=== PATIENT | female | born 1995 | race Caucasian/White ===

== ENCOUNTER → 2017-11-07 | Outpatient (CLI) | payer OTHER, BC | END | disposition home or self-care (01) | LOC: SPEC 09:01 | PROVIDERS: ATTEND Nurse Practitioner | DX: J02.9 Acute pharyngitis, unspecified (principal) | CPT/HCPCS: 87070 ==

== ENCOUNTER → 2017-11-14 | Outpatient (CLI) | payer OTHER ==
[2017-11-14 16:12] LABS: BASO % 0 % (0-3); EOS # 0.1 x10^3/uL (0.0-0.7); EOS % 1 % (0-3); HEMATOCRIT 44.5 % (36.0-47.0); HEMOGLOBIN 15.4 g/dL (12.0-15.5); LYMPH # 2.5 x10^3/uL (1.0-4.8); LYMPH % 31 % (24-48); MEAN CORPUSCULAR HEMOGLOBIN 33 pg (25-35); MEAN CORPUSCULAR HGB CONC 35 g/dL (31-37); MEAN CORPUSCULAR VOLUME 95 fL (79-100); MONO # 0.4 x10^3/uL (0.0-1.1); MONO % 5 % (0-9); NEUT % 62 % (31-73); PLATELET COUNT 225 x10^3/uL (140-400); RED BLOOD COUNT 4.68 x10^6/uL (3.50-5.40); RED CELL DISTRIBUTION WIDTH 12.3 % (11.5-14.5)
[2017-11-14 16:23] LABS: ALBUMIN 4.3 g/dL (3.4-5.0); ALBUMIN/GLOBULIN RATIO 1.1 (1.0-1.7); CALCIUM 9.5 mg/dL (8.5-10.1); CREATININE 0.8 mg/dL (0.6-1.0); GFR 90.5; POTASSIUM 3.4 mmol/L (3.5-5.1); TOTAL BILIRUBIN 0.6 mg/dL (0.2-1.0); TOTAL PROTEIN 8.1 g/dL (6.4-8.2)
[2017-11-14 16:53] LABS: BILIRUBIN,URINE NEGATIVE (NEG); CLARITY,URINE CLOUDY; COLOR,URINE YELLOW; NITRITE,URINE NEGATIVE (NEG); PH,URINE 5.5; PROTEIN,URINE 30 mg/dL (NEG-TRACE); UROBILINOGEN,URINE 0.2 mg/dL (0.2 mg/dL)
[2017-11-14 17:12] LABS: WBC,URINE TNTC /HPF (0-4)
[2017-11-14 17:13] LABS: BACTERIA,URINE MOD /HPF (0-FEW); SQUAMOUS EPITHELIAL CELL,UR MANY /LPF; TRICHOMONAS,URINE PRESENT
== END | disposition home or self-care (01) ==
LOC: LAB 15:47
PROVIDERS: ATTEND Nurse Practitioner
DX: R10.84 Generalized abdominal pain (principal)
CPT/HCPCS: 36415; 80053; 81001; 83690; 85025; 87086

== ENCOUNTER 2018-02-25 18:17 | Emergency (ER) | payer OTHER ==
[~2018-02-25] VITALS: Ht 165.1 cm; Wt 72.6 kg
[2018-02-25 18:55] VITALS: BP 139/88
[2018-02-25] MEDS ORDERED: SULF1TAB24 PO (19:27)
[2018-02-25] MEDS ORDERED: SMZ/TMP 800/160MG TABLET. PO ONE ×2 (19:30→19:35)
--- NOTE | 2018-02-25 19:50 | PHYS DOC ---
Past Medical History Past Medical History: Anxiety, Depression Past Surgical History: No Surgical History Alcohol Use: Occasionally Drug Use: None Adult General Chief Complaint Chief Complaint: SKIN PROBLEM HPI HPI Patient is a 22 year old female who presents with breast problem. Patient reports she had some swelling and a pustule formation at the Devon of the right breast. Symptoms started about 5 days earlier. She does have pictures on her phone that reveal what appears to be a large pustule at that area. She states yesterday, she was able to pop the pustule and there was a large amount of fluid that came out. She has not had a fever or chills. Her symptoms have improved since yesterday. No nipple discharge. Denies prior history of abscesses. Review of Systems Review of Systems Constitutional: Denies fever or chills Respiratory: Denies cough or shortness of breath Cardiovascular: No additional information not addressed in HPI GI: Denies abdominal pain, nausea Musculoskeletal: Denies back pain Integument: Denies rash or skin lesions Neurologic: Denies headache Endocrine: Denies polyuria All other systems were reviewed and found to be within normal limits, except as documented in this note. Current Medications Current Medications Current Medications Medications (Trade) Dose Ordered Sig/Obdulia Start Time Stop Time Status Last Admin Dose Admin Trimethoprim/ Sulfamethoxazole (Bactrim Ds) 1 tab STK-MED ONCE 02/25/18 19:35 02/25/18 19:37 DC Allergies Allergies Allergies Coded Allergies Type Severity Reaction Last Updated Verified No Known Drug Allergies 02/25/18 No Physical Exam Physical Exam Constitutional: Well developed, well nourished, no acute distress, non-toxic appearance HENT: Normocephalic, atraumatic, bilateral external ears normal, oropharynx moist Eyes: PERRLA, EOMI, conjunctiva normal Neck: Normal range of motion, no tenderness Cardiovascular:Heart rate regular rhythm, no murmur Lungs & Thorax: Bilateral breath sounds clear to auscultation Abdomen: Bowel sounds normal, soft, no tenderness Skin: Warm, dry, no erythema, no rash Neurologic: Alert and oriented X 3 Psychologic: Affect normal, judgement normal Right breast: area of mild erythema and induration over the areola at the 10 o' clock, position in relation to the nipple. No palpable fluctuance. No local warmth to touch. Current Patient Data Vital Signs Vital Signs Date Time Temp Pulse Resp B/P (MAP) Pulse Ox O2 Delivery O2 Flow Rate FiO2 02/25/18 18:55 98.7 88 18 139/88 (105) 100 Room Air 98.7 EKG EKG [] Radiology/Procedures Radiology/Procedures [] Course & Med Decision Making Course & Med Decision Making Pertinent Labs and Imaging studies reviewed. (See chart for details) Patient was evaluated for a possible abscess near the right Devon. Bedside ultrasound was used and did not reveal any significant fluid collection to be present although there was some mild induration and erythema of the skin in that area. No indication for incision and drainage or needle drainage at this time. Will discharge patient home with a brief course of Bactrim. Patient is advised to come back to the ER in 24-48 hours if symptoms do not improve. Last tetanus was one year earlier. Dragon Disclaimer Dragon Disclaimer This electronic medical record was generated, in whole or in part, using a voice recognition dictation system. Departure Departure Impression: Primary Impression: Abscess of breast Disposition: 01 HOME, SELF-CARE Condition: GOOD Patient Instructions: Abscess, Care After Scripts Sulfamethoxazole/Trimethoprim (BACTRIM DS TABLET) 1 Each Tablet 1 EACH PO BID for 5 Days, #10 TAB Prov: DAHLIA BURTON DO 02/25/18 DAHLIA BURTON DO Feb 25, 2018 19:50
== END 2018-02-25 19:51 | disposition home or self-care (01) ==
LOC: ER 18:17
DX: N61.1 Abscess of the breast and nipple (principal)
CPT/HCPCS: 99284-25

== ENCOUNTER 2018-04-03 18:14 | Emergency (ER) | payer OTHER ==
[~2018-04-03] VITALS: Ht 165.1 cm; Wt 99.8 kg
[~2018-04-03 18:14] MED LIST: SULF1TAB24 PO
[2018-04-03 19:00] VITALS: BP 137/90
[2018-04-03] MEDS ORDERED: HYDROcodone/APAP 5/325MG 1 TAB TABLET PO ONE (19:15)
--- NOTE | 2018-04-03 19:44 | PHYS DOC ---
Past Medical History Past Medical History: Anxiety, Depression Past Surgical History: No Surgical History Alcohol Use: Occasionally Drug Use: None Adult General Chief Complaint Chief Complaint: BREAST PROBLEM HPI HPI Patient is a 22 year old female who presents with right breast cyst that she has been wanting since February. Patient states the cyst is under the right nipple. Patient states there is no drainage and she's not been running a fever. Patient states it is tender and painful. Patient rates her pain 8 out of 10. Review of Systems Review of Systems Constitutional: Denies fever or chills [] Eyes: Denies change in visual acuity, redness, or eye pain [] HENT: Denies nasal congestion or sore throat [] Respiratory: Denies cough or shortness of breath [] Cardiovascular: No additional information not addressed in HPI [] GI: Denies abdominal pain, nausea, vomiting, bloody stools or diarrhea [] : Denies dysuria or hematuria [] Musculoskeletal: Denies back pain or joint pain [] Integument: Abscess under right nipple. Denies rash or skin lesions [] Neurologic: Denies headache, focal weakness or sensory changes [] All other systems were reviewed and found to be within normal limits, except as documented in this note. Current Medications Current Medications Current Medications Medications (Trade) Dose Ordered Sig/Obdulia Start Time Stop Time Status Last Admin Dose Admin Acetaminophen/ Hydrocodone Bitart (Lortab 5/325) 1 tab 1X ONCE 04/03/18 19:15 04/03/18 19:16 DC 04/03/18 19:15 1 TAB Allergies Allergies Allergies Coded Allergies Type Severity Reaction Last Updated Verified No Known Drug Allergies 02/25/18 No Physical Exam Physical Exam Constitutional: Well developed, well nourished, no acute distress, non-toxic appearance. [] HENT: Normocephalic, atraumatic, bilateral external ears normal, oropharynx moist, no oral exudates, nose normal. [] Eyes: PERRLA, EOMI, conjunctiva normal, no discharge. [] Neck: Normal range of motion, no tenderness, supple, no stridor. [] Cardiovascular:Heart rate regular rhythm, no murmur [] Lungs & Thorax: Bilateral breath sounds clear to auscultation [] Abdomen: Bowel sounds normal, soft, no tenderness, no masses, no pulsatile masses. [] Skin: Hard dollar coin size abscess under right breast. Warm, dry, outer edges on the skin around the areola erythema, no rash. [] Back: No tenderness, no CVA tenderness. [] Extremities: No tenderness, no cyanosis, no clubbing, ROM intact, no edema. [] Neurologic: Alert and oriented X 3, normal motor function, normal sensory function, no focal deficits noted. [] Psychologic: Affect normal, judgement normal, mood normal. [] Current Patient Data Vital Signs Vital Signs Date Time Temp Pulse Resp B/P (MAP) Pulse Ox O2 Delivery O2 Flow Rate FiO2 04/03/18 19:15 18 99 Room Air 04/03/18 19:00 98.6 104 137/90 (106) 98.6 EKG EKG [] Radiology/Procedures Radiology/Procedures [] Impressions: [facility] [address] [place] [address] IMAGING REPORT Signed PATIENT: ADONIS HOOD ACCOUNT: [id number] : 1995 LOCATION: ER AGE: 22 SEX: F EXAM STATUS: REG ER ORD. PHYSICIAN: JESUS COYLE APRN REASON: cyst at nipple PROCEDURE: BREAST RIGHT Limited right breast ultrasound the right 2018 INDICATION: Right breast area of redness and pain at the 10:00 position, 1 cm from the nipple. COMPARISON: None available TECHNIQUE: Sonographic evaluation of the right breast was performed at the 10:00 position, 1 cm from the nipple and 9:30 position, 1 cm from the nipple. FINDINGS: There is a 2.7 x 2.8 x 2.0 cm irregular mass with mixed internal echogenicity and suggestion of internal color Doppler. There is skin thickening measuring 2-3 mm. Right axillary lymph node measures 2.5 x 1.2 cm with normal fatty hilum and mild cortical thickness measuring up to 5 mm. Additional normal reniform lymph node measures 1.9 x 1.0 cm with normal cortical thickness. IMPRESSION: 2.7 x 2.8 x 2.0 cm irregular mass is identified in the 10:00 position, 1 cm from the nipple. Findings may reflect a hematoma or developing abscess. Solid parenchymal mass is a differential consideration and correlation with mammography may be of benefit. No drainable fluid collection is identified. BI-RADS Category 0. Incomplete. Recommendations: Recommend additional imaging with mammography. Electronically signed by: Mirza Loco MD (04/03/2018 8:26 PM) [facility] DICTATED and SIGNED BY: MIRZA LOCO MD DATE: 04/03/182021 Course & Med Decision Making Course & Med Decision Making Patient is a 22 year old female who presents with right breast cyst that she has been wanting since February. Patient states the cyst is under the right nipple. Patient states there is no drainage and she's not been running a fever. Patient states it is tender and painful. Patient rates her pain 8 out of 10. Alert and oriented. Skin pink warm and dry. Afebrile. Mucus membranes are moist. Patient has a hard collar coin-sized area that is under her right nipple. There is no drainage from the nipple. There is pinkness that expands slightly outside of the area left. Tender to palpation. It is hard. Patient is given Friedens in the ED. She states that she gets these often in the last one was about a month ago for which she received Bactrim for. Breast ultrasound shows: 2.7 x 2.8 x 2.0 cm irregular mass is identified in the 10:00 position, 1 cm from the nipple. Findings may reflect a hematoma or developing abscess.Solid parenchymal mass is a differential consideration and correlation with mammography may be of benefit. No drainable fluid collection is identified. BI-RADS Category 0. Incomplete. Recommendations: Recommend additional imaging with mammography. Patient will need to follow-up with her primary care or general surgeon for a mammogram for continuation of care. Dragon Disclaimer Dragon Disclaimer This electronic medical record was generated, in whole or in part, using a voice recognition dictation system. Departure Departure Impression: Primary Impression: Breast abscess Disposition: 01 HOME, SELF-CARE Condition: STABLE Referrals: JAKY GUERRERO APRN (PCP) SAMI RODARTE MD Patient Instructions: Abscess Additional Instructions: Call your primary care provider and get in to be seen for follow-up care or go to the general surgeon as I refer you to. You will need further imaging. Take medication as prescribed. Scripts Clindamycin Hcl (CLINDAMYCIN HCL) 300 Mg Capsule 300 MG PO QID for 10 Days, #40 CAP Prov: JESUS COYLE APRN 04/03/18 Hydrocodone/Apap 5-325 (NORCO 5-325 TABLET) 1 Each Tablet 1 TAB PO PRN Q6HRS PRN for PAIN, #10 TAB 0 Refills Prov: JESUS COYLE APRN 04/03/18 JESUS COYLE APRN Apr 03, 2018 19:44
--- NOTE | 2018-04-03 20:29 | RAD ---
Limited right breast ultrasound the right 2018 INDICATION: Right breast area of redness and pain at the 10:00 position, 1 cm from the nipple. COMPARISON: None available TECHNIQUE: Sonographic evaluation of the right breast was performed at the 10:00 position, 1 cm from the nipple and 9:30 position, 1 cm from the nipple. FINDINGS: There is a 2.7 x 2.8 x 2.0 cm irregular mass with mixed internal echogenicity and suggestion of internal color Doppler. There is skin thickening measuring 2-3 mm. Right axillary lymph node measures 2.5 x 1.2 cm with normal fatty hilum and mild cortical thickness measuring up to 5 mm. Additional normal reniform lymph node measures 1.9 x 1.0 cm with normal cortical thickness. IMPRESSION: 2.7 x 2.8 x 2.0 cm irregular mass is identified in the 10:00 position, 1 cm from the nipple. Findings may reflect a hematoma or developing abscess. Solid parenchymal mass is a differential consideration and correlation with mammography may be of benefit. No drainable fluid collection is identified. BI-RADS Category 0. Incomplete. Recommendations: Recommend additional imaging with mammography. Electronically signed by: Lexie Lundberg MD (04/03/2018 8:26 PM) [facility]
[2018-04-03] MEDS ORDERED: CLIN300C8 PO (21:06)
[2018-04-03] MEDS ORDERED: HYDR-3164 PO (21:06)
== END 2018-04-03 21:23 | disposition home or self-care (01) ==
LOC: ER 18:14
DX: N61.1 Abscess of the breast and nipple (principal)
CPT/HCPCS: 76641; 99284-25

== ENCOUNTER → 2018-04-04 | Outpatient (CLI) | payer OTHER ==
[2018-04-03 19:00] VITALS: BP 137/90
[~2018-04-04] MED LIST changes: +CLIN300C8 PO; +HYDR-3164 PO
--- NOTE | 2018-04-04 13:29 | RAD ---
DATE: 04/04/2018 EXAM: MAMMO CAMERON QUITA BILAT HISTORY: Breast lump, being treated as infection COMPARISON: Baseline study This study was interpreted with the benefit of Computerized Aided Detection (CAD). Breast Density: HETERO The breast parenchyma is heterogenously dense, which could reduce sensitivity of mammography. Breast parenchyma level C. FINDINGS: 2-D and 3-D tomosynthesis imaging was performed in CC and MLO projections. There is a 3 cm right breast nodule centered in the lateral retroareolar region. No other breast mass is seen. No suspicious microcalcifications are evident. The axillary regions are unremarkable. IMPRESSION: 1. Right lateral retroareolar mass which appears to correspond location to the nodule seen on yesterday's ultrasound exam. The mammographic features are nonspecific but are compatible with the clinical impression of an inflammatory process. Clinical and probably sonographic follow-up after therapy is suggested. 2. No other breast abnormality is detected. BI-RADS CATEGORY: 3 PROBABLY BENIGN FINDING(S)-SHORT INTERVAL FOLLOW-UP SUGGESTED RECOMMENDED FOLLOW-UP: 3M 3 MONTH FOLLOW-UP PQRS compliance statement: Patient information was entered into a reminder system with a target due date for the next mammogram. Mammography is a sensitive method for finding small breast cancers, but it does not detect them all and is not a substitute for careful clinical examination. A negative mammogram does not negate a clinically suspicious finding and should not result in delay in biopsying a clinically suspicious abnormality. "Our facility is accredited by the [employer] Mammography Program."
== END | disposition home or self-care (01) ==
LOC: MAMMO 12:35
PROVIDERS: ATTEND Nurse Practitioner
DX: N63.41 Unspecified lump in right breast, subareolar (principal)
CPT/HCPCS: 77066; G0279; 77062

== ENCOUNTER → 2018-04-08 | Outpatient (CLI) | payer OTHER ==
[2018-04-03 19:00] VITALS: BP 137/90
[2018-04-08 14:40] LABS: BASO % 1 % (0-3); EOS % 1 % (0-3); HEMATOCRIT 42.8 % (36.0-47.0); HEMOGLOBIN 14.7 g/dL (12.0-15.5); LYMPH # 2.2 x10^3/uL (1.0-4.8); LYMPH % 35 % (24-48); MEAN CORPUSCULAR HEMOGLOBIN 32 pg (25-35); MEAN CORPUSCULAR HGB CONC 34 g/dL (31-37); MEAN CORPUSCULAR VOLUME 95 fL (79-100); MONO # 0.5 x10^3/uL (0.0-1.1); MONO % 7 % (0-9); NEUT # 3.6 x10^3uL (1.8-7.7); NEUT % 56 % (31-73); PLATELET COUNT 239 x10^3/uL (140-400); RED BLOOD COUNT 4.53 x10^6/uL (3.50-5.40); RED CELL DISTRIBUTION WIDTH 11.9 % (11.5-14.5); WHITE BLOOD COUNT 6.4 x10^3/uL (4.0-11.0)
== END | disposition home or self-care (01) ==
LOC: LAB 14:08
PROVIDERS: ATTEND Nurse Practitioner
DX: N92.6 Irregular menstruation, unspecified (principal)
CPT/HCPCS: 36415; 82728; 83540; 83550; 85025

== ENCOUNTER → 2018-07-04 | Outpatient (CLI) | payer OTHER ==
--- NOTE | 2018-07-04 11:43 | RAD ---
Right breast ultrasound, 07/04/2018: HISTORY: Follow-up abscess Comparison is made to a study from 04/03/2018. The patient has reportedly received antibiotics and no longer feels breast discomfort or and lump. A targeted ultrasound exam of the retroareolar region was performed. There is shadowing related to the nipple. Heterogeneous fibroglandular shadows are present. No mass or significant residual fluid collection is currently seen. Electronically signed by: Nikko Jaime MD (07/04/2018 11:40 AM) [facility]
== END | disposition home or self-care (01) ==
LOC: US 11:12
PROVIDERS: ATTEND Nurse Practitioner
DX: N63.10 Unspecified lump in the right breast, unspecified quadrant (principal)
CPT/HCPCS: 76641

== ENCOUNTER → 2018-08-21 | Outpatient (CLI) | payer OTHER | END | disposition home or self-care (01) | LOC: SPEC 15:59 | PROVIDERS: ATTEND Obstetrics & Gynecology | DX: Z01.419 Encounter for gynecological examination (general) (routine) without abnormal findings (principal) | CPT/HCPCS: 88175 ==

== ENCOUNTER 2019-01-17 12:40 | Emergency (ER) | payer OTHER ==
[~2019-01-17] VITALS: Ht 165.1 cm; Wt 93.0 kg
[2019-01-17 13:52] VITALS: BP 141/86
--- NOTE | 2019-01-17 14:21 | PHYS DOC ---
Past Medical History Past Medical History: No Pertinent History, Anxiety, Depression Past Surgical History: No Surgical History Alcohol Use: Occasionally Drug Use: None Adult General Chief Complaint Chief Complaint: INSECT BITE HPI HPI Patient is a 23 year old female who presents to the emergency department with complaints of bilateral left lower leg redness and warmth, and tenderness for the last 3 days. Patient states she believes it is a spider bite. She denies any fever, cough, shortness breath, nausea, vomiting, diarrhea, chest pain, palpitations, headache, numbness, tingling, or weakness. She currently rates her pain a 10 is 10 on pain scale she denies any alleviating factors. Patient denies any drainage or bleeding from the site. She also denies any itching. All other ROS is neg unless otherwise noted in HPI. Review of Systems Review of Systems See Above Allergies Allergies Allergies Coded Allergies Type Severity Reaction Last Updated Verified No Known Drug Allergies 02/25/18 No Physical Exam Physical Exam See Above Constitutional: Well developed, well nourished, no acute distress, non-toxic appearance. [] HENT: Normocephalic, atraumatic, bilateral external ears normal, nose normal. [] Eyes: PERRLA, EOMI, conjunctiva normal, no discharge. [] Neck: Normal range of motion, no stridor. [] Cardiovascular:Heart rate regular rhythm Lungs & Thorax: Respirations even and unlabored, no retractions, no respiratory distress Skin: Warm, dry; 1.5 cm erythemic area noted to distal end of lateral left ankle consistent with an insect bite of the lower left leg with a localized reaction and mild cellulitis., No bleeding, no drainage Extremities: No cyanosis, ROM intact, no edema. [] Neurologic: Alert and oriented X 3, no focal deficits noted. [] Psychologic: Affect normal, judgement normal, mood normal. [] Current Patient Data Vital Signs Vital Signs Date Time Temp Pulse Resp B/P (MAP) Pulse Ox O2 Delivery O2 Flow Rate FiO2 01/17/19 13:52 98.9 93 16 141/86 (104) 99 Room Air 98.9 EKG EKG [] Radiology/Procedures Radiology/Procedures [] Course & Med Decision Making Course & Med Decision Making Pertinent Labs and Imaging studies reviewed. (See chart for details) [] Dragon Disclaimer Dragon Disclaimer This electronic medical record was generated, in whole or in part, using a voice recognition dictation system. Departure Departure Impression: Primary Impression: Insect bite of left lower leg with local reaction Disposition: 01 HOME, SELF-CARE Condition: STABLE Referrals: JAKY GUERRERO APRN (PCP) Patient Instructions: Cellulitis, [id number], Insect Bite, [id number] Additional Instructions: Fill the prescription and use as directed. Apply warm moist heat to the affected area four times a day and as needed. Tylenol or ibuprofen as needed for pain. Follow up with your doctor next week for recheck. Return to the ER if your symptoms worsen or your develop a fever. Scripts Mupirocin (MUPIROCIN OINTMENT) 22 Gm Oint...g. 1 MORELIA TP TID for WOUND CARE for 7 Days, #1 TUBE 0 Refills Prov: CORDELL SALINAS APRN 01/17/19 Problem Qualifiers Primary Impression: Insect bite of left lower leg with local reaction Encounter type: initial encounter Qualified Codes: S80.862A - Insect bite (nonvenomous), left lower leg, initial encounter; W57.XXXA - Bitten or stung by nonvenomous insect and other nonvenomous arthropods, initial encounter CORDELL SALINAS APRN Jan 17, 2019 14:21
[2019-01-17] MEDS ORDERED: MUPI22OI2 TP (14:24)
== END 2019-01-17 14:37 | disposition home or self-care (01) ==
LOC: ER 12:40
DX: S80.862A Insect bite (nonvenomous), left lower leg, initial encounter (principal); L08.9 Local infection of the skin and subcutaneous tissue, unspecified; W57.XXXA Bitten or stung by nonvenomous insect and other nonvenomous arthropods, initial encounter; Y93.89 Activity, other specified; Y92.89 Other specified places as the place of occurrence of the external cause; Y99.8 Other external cause status
CPT/HCPCS: 99283

== ENCOUNTER → 2020-01-06 | Outpatient (CLI) | payer OTHER ==
[~2020-01-06] MED LIST changes: +MUPI22OI2 TP
[2020-01-06 14:27] LABS: BASO # 0.1 x10^3/uL (0.0-0.2); BASO % 1 % (0-3); EOS % 1 % (0-3); HEMATOCRIT 42.8 % (36.0-47.0); HEMOGLOBIN 14.8 g/dL (12.0-15.5); LYMPH # 2.2 x10^3/uL (1.0-4.8); LYMPH % 33 % (24-48); MEAN CORPUSCULAR HEMOGLOBIN 33 pg (25-35); MEAN CORPUSCULAR HGB CONC 35 g/dL (31-37); MEAN CORPUSCULAR VOLUME 97 fL (79-100); MONO # 0.6 x10^3/uL (0.0-1.1); MONO % 9 % (0-9); NEUT # 3.7 x10^3/uL (1.8-7.7); NEUT % 56 % (31-73); PLATELET COUNT 226 x10^3/uL (140-400); RED BLOOD COUNT 4.43 x10^6/uL (3.50-5.40); WHITE BLOOD COUNT 6.6 x10^3/uL (4.0-11.0)
[2020-01-06 14:47] LABS: ALBUMIN 4.2 g/dL (3.4-5.0); ALBUMIN/GLOBULIN RATIO 1.4 (1.0-1.7); CALCIUM 9.1 mg/dL (8.5-10.1); CREATININE 0.8 mg/dL (0.6-1.0); GFR 88.9; POTASSIUM 4.7 mmol/L (3.5-5.1); TOTAL BILIRUBIN 0.3 mg/dL (0.2-1.0); TOTAL PROTEIN 7.3 g/dL (6.4-8.2)
[2020-01-06 14:58] LABS: CHOLESTEROL/HDL RATIO 4.5
[2020-01-07 00:08] LABS: HEMOGLOBIN A1C 4.9 % (4.8-5.6)
== END ==
LOC: LAB 13:57
PROVIDERS: ATTEND Nurse Practitioner
DX: Z00.00 Encounter for general adult medical examination without abnormal findings (principal)
CPT/HCPCS: 36415; 80053; 80061; 83036; 84443; 85025